=== PATIENT | female | born 1995 | race Caucasian/White ===

== ENCOUNTER 2021-06-21 16:50 | Emergency (ER) | payer BC ==
[2021-06-21 17:27] LABS: BILIRUBIN,URINE NEGATIVE (NEGATIVE); GLUCOSE, URINE (UA) NEGATIVE (NEGATIVE); KETONES,URINE (UA) NEGATIVE (NEGATIVE); LEUKOCYTE ESTERASE, URINE NEGATIVE (NEGATIVE); NITRITE,URINE NEGATIVE (NEGATIVE); OCCULT BLOOD,URINE NEGATIVE (NEGATIVE); PROTEIN,URINE NEGATIVE (NEGATIVE); UROBILINOGEN,URINE 0.2 (NORMAL) E.U./dL (NORMAL)
[2021-06-21 17:28] LABS: BASOPHILS % (AUTO) 0.5 %; EOSINOPHILS # (AUTO) 0.1 10^3/uL (0.0-0.7); EOSINOPHILS % (AUTO) 0.9 %; HCT - HEMATOCRIT 42.8 % (37.0-47.0); HGB - HEMOGLOBIN 14.3 g/dL (12.0-16.0); LYMPHOCYTES % (AUTO) 34.2 %; MEAN CORPUSCULAR HEMOGLOBIN 30.2 pg (27.0-31.0); MEAN CORPUSCULAR HGB CONC 33.4 g/dL (32.0-36.0); MEAN CORPUSCULAR VOLUME 90.3 fL (81.0-99.0); MEAN PLATELET VOLUME 9.1 fL (7.9-10.8); MONOCYTES # (AUTO) 0.3 10^3/uL (0.0-1.0); MONOCYTES % (AUTO) 5.8 %; NEUTROPHILS # (AUTO) 3.4 10^3/uL (1.5-6.6); NEUTROPHILS % (AUTO) 58.4 %; PLT - PLATELET COUNT 235 10^3/uL (130-450); RED BLOOD COUNT 4.74 10^6/uL (4.20-5.40); WHITE BLOOD COUNT 5.9 x10^3/uL (4.8-10.8)
[2021-06-21 17:29] LABS: CLARITY,URINE CLEAR (CLEAR); HCG UR QUAL NEGATIVE
[2021-06-21] MEDS ORDERED: HYDROcod/ACETAM 5/325 MG TABLET PO STA (17:39)
[2021-06-21 17:41] LABS: ALBUMIN 4.5 g/dL (3.2-5.5); ALBUMIN/GLOBULIN RATIO 1.3 (1.0-2.2); BILIRUBIN,TOTAL 0.9 mg/dL (0.2-1.0); CALCIUM 9.4 mg/dL (8.5-10.3); CREATININE 0.8 mg/dL (0.4-1.0); POTASSIUM 3.7 mmol/L (3.5-5.0); TOTAL PROTEIN 7.9 g/dL (6.7-8.2)
--- NOTE | 2021-06-21 18:09 | ED Physician Documentation ---
History of Present Illness - Stated complaint Stated Complaint: LOW ABD PX/NAUSEA - Chief complaint Chief Complaint: Abd Pain - History obtained from History obtained from: Patient - History of Present Illness Timing: Today Pain level max: 6 Pain level now: 4 - Additonal information Additional information: Patient is a 25-year-old female who presents to the emergency department left lower pelvic pain. This started today and is gradually worsened throughout the day. Described as sharp in nature. She states it is intense for about 30 seconds and then relieves for a few minutes, then recurs and relieves. LMP was about 1.5 weeks ago. She states she normally has a regular cycle. She is not on control. Review of Systems Ten Systems: 10 systems reviewed and negative Constitutional: denies: Fever, Chills Respiratory: denies: Cough GI: denies: Vomiting, Diarrhea, Hematemesis, Bloody / black stool : denies: Dysuria, Frequency, Hesitancy, Discharge, Now EGA Skin: denies: Rash PD PAST MEDICAL HISTORY - Past Medical History Past Medical History: No - Past Surgical History Past Surgical History: No - Present Medications Home Medications: Ambulatory Orders Medication Instructions Recorded Confirmed HYDROcod/ACETAM 5/325 [[place] 5/325] 1 - 2 ea PO Q6H PRN #14 tablet 06/21/21 - Allergies Allergies/Adverse Reactions: Allergies Allergy/AdvReac Type Severity Reaction Status Date / Time Penicillins Allergy Hives Verified 06/21/21 17:05 - Living Situation Living Arrangement: reports: At home - Social History Does the pt smoke?: No Does the pt have substance abuse?: No - Family History Family history: reports: Non contributory PD ED PE NORMAL - Vitals Vital signs reviewed: Yes - General General: Alert and oriented X 3, No acute distress, Well developed/nourished - HEENT HEENT: Moist mucous membranes - Neck Neck: Supple, no meningeal sign - Cardiac Cardiac: RRR, Strong equal pulses - Respiratory Respiratory: No respiratory distress, Clear bilaterally - Abdomen Abdomen: Soft, Non distended, Other (Tender palpation suprapubic/left pelvic. No peritoneal signs) - Back Back: No CVA TTP, No spinal TTP - Derm Derm: Warm and dry - Extremities Extremities: No edema - Neuro Neuro: Alert and oriented X 3 - Psych Psych: Normal mood, Normal affect Results - Vitals Vitals: Vital Signs - 24 hr 06/21/21 06/21/21 17:05 19:33 Temperature 36.5 C 37.2 C Heart Rate 100 99 Respiratory 16 18 Rate Blood Pressure 129/85 H 112/72 O2 Saturation 97 99 Oxygen O2 Source Room air - Labs Labs: Laboratory Tests 06/21/21 06/21/21 06/21/21 17:16 17:16 17:22 WBC 5.9 RBC 4.74 Hgb 14.3 Hct 42.8 MCV 90.3 MCH 30.2 MCHC 33.4 RDW 12.0 Plt Count 235 MPV 9.1 Neut # (Auto) 3.4 Lymph # (Auto) 2.0 [place] # (Auto) 0.3 Eos # (Auto) 0.1 Baso # (Auto) 0.0 Absolute Nucleated RBC 0.00 Nucleated RBC % 0.0 Sodium Potassium Chloride Carbon Dioxide Anion Gap BUN Creatinine Estimated GFR (MDRD) Glucose Calcium Total Bilirubin AST ALT Alkaline Phosphatase Total Protein Albumin Globulin Albumin/Globulin Ratio Lipase Urine Color DARK YELLOW Urine Clarity CLEAR Urine pH 6.0 Ur Specific [place] >=1.030 H Urine Protein NEGATIVE Urine Glucose (UA) NEGATIVE Urine Ketones NEGATIVE Urine Occult Blood NEGATIVE Urine Nitrite NEGATIVE Urine Bilirubin NEGATIVE Urine Urobilinogen 0.2 (NORMAL) Ur Leukocyte Esterase NEGATIVE Ur Microscopic Review NOT INDICATED Urine Culture Comments NOT INDICATED Urine HCG, Qual NEGATIVE 06/21/21 17:22 WBC RBC Hgb Hct MCV MCH MCHC RDW Plt Count MPV Neut # (Auto) Lymph # (Auto) [place] # (Auto) Eos # (Auto) Baso # (Auto) Absolute Nucleated RBC Nucleated RBC % Sodium 137 Potassium 3.7 Chloride 99 L Carbon Dioxide 26 Anion Gap 12.0 BUN 10 Creatinine 0.8 Estimated GFR (MDRD) 89 Glucose 97 Calcium 9.4 Total Bilirubin 0.9 AST 18 ALT 13 Alkaline Phosphatase 61 Total Protein 7.9 Albumin 4.5 Globulin 3.4 Albumin/Globulin Ratio 1.3 Lipase 28 Urine Color Urine Clarity Urine pH Ur Specific [place] Urine Protein Urine Glucose (UA) Urine Ketones Urine Occult Blood Urine Nitrite Urine Bilirubin Urine Urobilinogen Ur Leukocyte Esterase Ur Microscopic Review Urine Culture Comments Urine HCG, Qual - Rads (name of study) pelvic US Radiology: Final report received, EMP read contemporaneously, See rad report PD MEDICAL DECISION MAKING - ED course Complexity details: reviewed results, re-evaluated patient, considered differential, d/w patient ED course: 25-year-old female with left pelvic pain. Appears to have a hemorrhagic cyst in the right ovary. Patient is well-appearing, nontoxic. Afebrile. We will place on pain medication for the hemorrhagic ovarian cyst. No evidence of torsion. I am prescribing a short course of short-acting opioid pain medication for this patient. 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 I have discussed that the opioids are for short term therapy only, and will not be refilled from the ED. patient counseled regarding signs and symptoms for which I believe and urgent re-evaluation would be necessary. Patient with good understanding of and agreement to plan and is comfortable going home at this time This document was made in part using voice recognition software. While efforts are made to proofread this document, sound alike and grammatical errors may occur. 1. No evidence of ovarian torsion. No gross solid-appearing ovarian lesion. Likely hemorrhagic cyst in right ovary as above. 2. Normal-appearing uterus and endometrium. Departure - Departure Disposition: 01 Home, Self Care Clinical Impression: Hemorrhagic cyst of right ovary Condition: Good Instructions: ED Cyst Ovarian Follow-Up: your,doctor in 1 week if not better [Other] Prescriptions: HYDROcod/ACETAM 5/325 [[place] 5/325] 1 - 2 ea PO Q6H PRN #14 tablet PRN Reason: Pain Comments: You appear to have a hemorrhagic ovarian cyst in your right ovary. It is recommended to have a repeat ultrasound in 4 to 6 weeks to ensure resolution. Please follow-up with your doctor for further care. Return if you worsen. Your prescriptions were sent to [facility] in [place]. I am prescribing a short course of narcotic pain medication for you. These are potentially dangerous and addictive medications that should be used carefully. These medications may constipate you. Take an orsh-wwx-bezefar stool softener (docusate) twice daily with plenty of water while taking these medications. If you go 24 hours without a bowel movement, take ccww-iur-relhrwk miralax, per package instructions. Do not drink or drive while taking these medications. If you received narcotic or sedating medications while in the emergency department, do not drive for 24 hours. Store this medication in a safe, secure place and out of reach of children. It is a violation of federal law to give or sell this medication to another person or to use in a manner other than prescribed. The ED will not refill narcotic prescriptions, including prescriptions lost or stolen. To dispose of unwanted medications: 1. [facility] [address] in [place] has a medication drop box. They accept prescription medications (in pill form) Friday through Friday 9:00 a.m. to 5:00 p.m. 2. [facility] [employer] [facility] accepts prescription medications (in pill form only) for disposal year round. Call for more information. 3. Contact the [facility] for the next [facility] sponsored prescription drug collection event. , [phone], or [phone]; Discharge Date/Time: 06/21/21 19:45
[2021-06-21] MEDS ORDERED: oxyCODONE 5 MG TABLET PO STA (19:26)
[2021-06-21 19:34] VITALS: BP 112/72
--- NOTE | 2021-06-21 19:39 | Ultrasound Report ---
PROCEDURE: Pelvic w/Transvag+Doppler Comp INDICATIONS: pelvic pain, L TECHNIQUE: Real-time scanning was performed of the pelvic organs, with image documentation. Additional endovagi nal scanning was necessary due to incomplete visualization of the adnexal and endometrial structures by transabdominal scanning. COMPARISON: None. FINDINGS: No pathologic free abdominal or pelvic fluid. Uterus: Uterus is normal in size at 6.2 x 2.8 x 4.3 cm. No discrete uterine fibroid is seen. Myometr ium is homogeneous in echotexture. The endometrium measures 4.7 mm in combined thickness. No endomet rial mass or fluid is seen. Ovaries: Right ovary measures 4.3 x 2.9 x 4.3 cm in size. Complex appearing cyst is seen in right ov nic measures 3.4 x 2.9 x 3 cm in size with low level internal echoes. No internal vascularity is seen . No solid-appearing ovarian lesion. Left ovary measures 3.2 x 1.6 x 2.4 cm in size and is within nor mal limits. Normal arterial and venous flow is seen in bilateral ovaries on color Doppler images. IMPRESSION: 1. No evidence of ovarian torsion. No gross solid-appearing ovarian lesion. Likely hemorrhagic cyst i n right ovary as above. 2. Normal-appearing uterus and endometrium. Reviewed by: Christiano Resendiz MD on 06/21/2021 7:38 PM PST Approved by: Christiano Resendiz MD on 06/21/2021 7:38 PM PST Station ID: [id number]
== END 2021-06-21 19:45 | disposition home or self-care (01) ==
LOC: ED 16:50
DX: N83.201 Unspecified ovarian cyst, right side (principal)
CPT/HCPCS: 36415; 76830; 76856; 80053; 81003; 81025; 83690; 85025; 93975; 99282; 99284; A9270; 81001; 87086

== ENCOUNTER 2021-06-22 08:43 | Emergency (ER) | payer BC ==
--- NOTE | 2021-06-22 09:10 | ED Physician Documentation ---
PD HPI ABD PAIN - Stated complaint Stated Complaint: HIP/ABD PX - Chief complaint Chief Complaint: Abd Pain - History obtained from History obtained from: Patient - Additional information Additional information: 25yo female with hx pancreatitis (once, 7 yrs ago), and ulcerative colitis. Has lower abd pain x 13 hrs, constant and sharp. Seen yesterday and dx ovarian cyst. Pain is worse now. Pain is in the left pelvis. Took zofran/toradol at home. Has not filled hydrocodone rx yet. She is mid-cycle, LMP starting about 2 weeks ago. Review of Systems Ten Systems: 10 systems reviewed and negative Constitutional: denies: Fever, Chills Ears: reports: Reviewed and negative Nose: reports: Reviewed and negative Throat: reports: Reviewed and negative Cardiac: reports: Reviewed and negative Respiratory: reports: Reviewed and negative PD PAST MEDICAL HISTORY - Past Medical History Past Medical History: Yes GI: Ulcerative colitis - Past Surgical History Past Surgical History: No - Present Medications Home Medications: Ambulatory Orders Medication Instructions Recorded Confirmed HYDROcod/ACETAM 5/325 [[place] 5/325] 1 - 2 ea PO Q6H PRN #14 tablet 06/21/21 - Allergies Allergies/Adverse Reactions: Allergies Allergy/AdvReac Type Severity Reaction Status Date / Time Penicillins Allergy Hives Verified 06/22/21 08:51 - Social History Does the pt smoke?: No Smoking Status: Never smoker Does the pt have substance abuse?: No PD ED PE NORMAL - Vitals Vital signs reviewed: Yes - General General: Alert and oriented X 3, No acute distress - Cardiac Cardiac: RRR, No murmur - Respiratory Respiratory: No respiratory distress, Clear bilaterally - Abdomen Abdomen: Normal bowel sounds, Soft, Other (She does have pain that reproduces her pain with rotation of the hip, but more so with palpation deep in the left pelvis.) - Back Back: No CVA TTP, No spinal TTP - Derm Derm: Normal color, Warm and dry - Extremities Extremities: No edema, No calf tenderness / cord - Neuro Neuro: Alert and oriented X 3, Normal speech - Psych Psych: Normal mood, Normal affect Results - Vitals Vitals: Vital Signs - 24 hr 06/22/21 06/22/21 06/22/21 08:51 11:09 12:10 Temperature 37.1 C 36.7 C Heart Rate 93 90 90 Respiratory 18 18 20 Rate Blood Pressure 114/80 104/58 L 115/73 O2 Saturation 100 100 100 Oxygen O2 Source Room air - Labs Labs: Laboratory Tests 06/22/21 06/22/21 06/22/21 09:30 09:30 09:30 WBC 5.6 RBC 4.27 Hgb 12.8 Hct 38.3 MCV 89.7 MCH 30.0 MCHC 33.4 RDW 12.0 Plt Count 213 MPV 9.4 Neut # (Auto) 4.0 Lymph # (Auto) 1.3 L [place] # (Auto) 0.3 Eos # (Auto) 0.1 Baso # (Auto) 0.0 Absolute Nucleated RBC 0.00 Nucleated RBC % 0.0 Sodium 136 Potassium 3.8 Chloride 101 Carbon Dioxide 26 Anion Gap 9.0 BUN 15 Creatinine 0.9 Estimated GFR (MDRD) 78 L Glucose 93 Calcium 9.0 Total Bilirubin 0.9 AST 16 ALT 11 Alkaline Phosphatase 58 Total Protein 7.2 Albumin 3.9 Globulin 3.3 Albumin/Globulin Ratio 1.2 Lipase 27 Urine Color BROWN Urine Clarity CLOUDY Urine pH 5.5 Ur Specific [place] >=1.030 H Urine Protein 30 H Urine Glucose (UA) NEGATIVE Urine Ketones TRACE Urine Occult Blood LARGE H Urine Nitrite NEGATIVE Urine Bilirubin NEGATIVE Urine Urobilinogen 0.2 (NORMAL) Ur Leukocyte Esterase NEGATIVE Urine RBC 11-25 H Urine WBC 0-3 Ur Squamous Epith Cells FEW Squamous Urine Bacteria Few Urine Mucus Moderate Strands Ur Microscopic Review INDICATED Urine Culture Comments NOT INDICATED Urine HCG, Qual NEGATIVE PD MEDICAL DECISION MAKING - ED course ED course: 25-year-old woman with worsening pelvic pain, has a known ovarian cyst on the contralateral side which can be contributory, labs from yesterday were unremarkable. She has a history of ulcerative colitis but does not have any increase in GI complaints. Otherwise labs and work-up were negative yesterday other than the right ovarian cyst. She is worse today. Pain could be musculoskeletal, it is worse with rotation of the left hip. Differential would also include diverticulitis or ulcerative colitis flare but less likely given lack of GI complaints. She does not appear uncomfortable so ovarian cyst torsion is less likely. 25-year-old woman Harish presents with left lower quadrant pelvic pain. Fairly benign exam. CT of the abdomen pelvis shows: IMPRESSION: Prior rectosigmoid postoperative change is seen, with a small caliber of the distal rectum. The sigmoid and the proximal rectum demonstrate a moderate amount of stool. Please correlate with potential partial obstruction at this site. Hard to say how much of her pain is from the ovarian cyst versus the above findings on CT, she has known strictures from her ulcerative colitis and prior surgeries and is planning to go see her GI and she has required agitations in the past. She will go on a liquid diet with stool softeners until she sees him. Departure - Departure Disposition: 01 Home, Self Care Clinical Impression: Hemorrhagic cyst of right ovary Constipation Qualifiers: Constipation type: other constipation type Qualified Code(s): K59.09 - Other constipation Condition: Good Record reviewed to determine appropriate education?: Yes Instructions: ED Constipation, ED Abdominal Pain Female Non-Specific Abdominal Pain Comments: As discussed, hard to say how much of your pain is from the ovarian cyst versus the stricture in your colon causing difficulty with stool passage. Going on a liquid diet and low residue diet and start ioue-qov-mrguyct stool softeners and laxatives such as MiraLAX. Agree with seeing your GI doctor and consideration for colonoscopy. Return if worse.
[2021-06-22] MEDS ORDERED: HYDROmorphone 1 MG/ML CARPUJECT IVP STA (09:22)
[2021-06-22] MEDS ORDERED: ONDANSETRON 4 MG/2 ML VIAL IVP STA (09:22)
[2021-06-22] MEDS ORDERED: IOPAMIDOL-300 50 ML VIAL ONE (09:40)
[2021-06-22] MEDS ORDERED: IOVERSOL 320 100 ML VIAL IVP ONE ×2 (09:40→20:10)
[2021-06-22 09:54] LABS: BILIRUBIN,URINE NEGATIVE (NEGATIVE); GLUCOSE, URINE (UA) NEGATIVE (NEGATIVE); KETONES,URINE (UA) TRACE mg/dL (NEGATIVE); LEUKOCYTE ESTERASE, URINE NEGATIVE (NEGATIVE); NITRITE,URINE NEGATIVE (NEGATIVE); OCCULT BLOOD,URINE LARGE (NEGATIVE); PH,URINE 5.5 PH (5.0-7.5); PROTEIN,URINE 30 mg/dL (NEGATIVE); UROBILINOGEN,URINE 0.2 (NORMAL) E.U./dL (NORMAL)
[2021-06-22 09:58] LABS: CLARITY,URINE CLOUDY (CLEAR); HCG UR QUAL NEGATIVE
[2021-06-22 09:59] LABS: BASOPHILS % (AUTO) 0.4 %; EOSINOPHILS # (AUTO) 0.1 10^3/uL (0.0-0.7); EOSINOPHILS % (AUTO) 1.2 %; HCT - HEMATOCRIT 38.3 % (37.0-47.0); HGB - HEMOGLOBIN 12.8 g/dL (12.0-16.0); LYMPHOCYTES # (AUTO) 1.3 10^3/uL (1.5-3.5); LYMPHOCYTES % (AUTO) 22.6 %; MEAN CORPUSCULAR HGB CONC 33.4 g/dL (32.0-36.0); MEAN CORPUSCULAR VOLUME 89.7 fL (81.0-99.0); MEAN PLATELET VOLUME 9.4 fL (7.9-10.8); MONOCYTES # (AUTO) 0.3 10^3/uL (0.0-1.0); NEUTROPHILS % (AUTO) 70.4 %; PLT - PLATELET COUNT 213 10^3/uL (130-450); RED BLOOD COUNT 4.27 10^6/uL (4.20-5.40); WHITE BLOOD COUNT 5.6 x10^3/uL (4.8-10.8)
[2021-06-22 10:02] LABS: BACTERIA,URINE Few /HPF (None Seen); MUCUS,URINE Moderate Strands; SQUAMOUS EPITHELIAL CELL,UR FEW Squamous (<= Few); WBC,URINE 0-3 /HPF (0-5)
[2021-06-22 10:12] LABS: ALBUMIN 3.9 g/dL (3.2-5.5); ALBUMIN/GLOBULIN RATIO 1.2 (1.0-2.2); BILIRUBIN,TOTAL 0.9 mg/dL (0.2-1.0); CREATININE 0.9 mg/dL (0.4-1.0); POTASSIUM 3.8 mmol/L (3.5-5.0); TOTAL PROTEIN 7.2 g/dL (6.7-8.2)
[2021-06-22] MEDS ORDERED: KETOROLAC 15 MG/ML VIAL IVP STA (11:12)
--- NOTE | 2021-06-22 13:11 | CT Report ---
PROCEDURE: Abdomen/Pelvis W INDICATIONS: IV and PO, LLQ pain CONTRAST: IV CONTRAST: Optiray 320 ml: 100 PO CONTRAST: TECHNIQUE: After the administration of IV and oral contrast, 5 mm thick sections acquired from the diaphragms to the symphysis. 5 mm thick coronal and sagittal reformats were acquired. For radiation dose reducti on, the following was used: automated exposure control, adjustment of mA and/or kV according to fransisca ent size. COMPARISON: Correlation is made with the recent prior pelvic ultrasound, 06/21/2021. FINDINGS: Image quality: Excellent. ABDOMEN: Lung bases: Lung bases are clear. Heart size is normal. Solid organs: The liver demonstrates normal size. No liver lesions are detected. The spleen is mild ly enlarged, measuring 13.5 cm craniocaudal. No focal splenic abnormality is seen. Gallbladder wall does not appear thickened. Biliary system is non dilated. Pancreas enhances normally. No adrenal nodules. Kidneys demonstrate normal size and enhancement, without hydronephrosis. Peritoneum and bowel: Postoperative change of the rectosigmoid can be seen. There is a moderate amou nt of stool seen within the sigmoid and the proximal rectum. The distal rectum demonstrates small iman iber. This is best demonstrated on series 7 image 38. No dilated loops of small bowel are seen. No additional colonic abnormality is seen. No free air or s ignificant free fluid can be seen. Nodes and vessels: No retroperitoneal or mesenteric adenopathy by size criteria. Aorta and inferior vena cava are normal in size. Miscellaneous: No ventral hernias. PELVIS: Genitourinary: Bladder wall thickness is normal. The uterus demonstrates an unremarkable appearance for age. No adnexal masses are seen. A 2.9 cm right ovarian cyst can be seen, as on series 3 image 7 6, which is considered to be within physiologic limits. Miscellaneous: No inguinal hernias or adenopathy. Bones: No suspicious bony lesions. No vertebral body compression fractures. IMPRESSION: Prior rectosigmoid postoperative change is seen, with a small caliber of the distal rectum. The sigmo id and the proximal rectum demonstrate a moderate amount of stool. Please correlate with potential pa rtial obstruction at this site. Incidental note is made of: Physiologic appearing right ovarian cyst Reviewed by: Neil Montanez MD on 06/22/2021 12:10 PM [place] Approved by: Neil Montanez MD on 06/22/2021 12:10 PM [facility] Station ID: [id number]
[2021-06-22 13:28] VITALS: BP 130/70
[2021-06-22] MEDS ORDERED: IOPAMIDOL-300 50 ML VIAL PO ONE (20:11)
== END 2021-06-22 13:28 | disposition home or self-care (01) ==
LOC: ED 08:43
DX: N83.201 Unspecified ovarian cyst, right side (principal); K59.00 Constipation, unspecified; K51.90 Ulcerative colitis, unspecified, without complications
CPT/HCPCS: 36415; 74177; 80053; 81001; 81025; 83690; 85025; 96374; 96375; 99284; J1170; Q9967; 81003; 87086